=== PATIENT | female | born 1965 | race Caucasian/White ===

== ENCOUNTER 2024-05-11 17:08 | Outpatient (REF) | payer OTHER, SELFPAY ==
--- NOTE | ~2024-05-11 | MR_ITS ---
EXAMINATION: MR BRAIN WITHOUT AND WITH CONTRAST CLINICAL INFORMATION: Resting tremor. COMPARISON: None available. TECHNIQUE: MRI of the brain was obtained using routine sequences without and following the administration of 6.5 mL of Gadavist intravenous contrast. FINDINGS: No focal restricted diffusion is demonstrated to suggest acute or subacute cerebral ischemia. No evidence of acute or chronic hemorrhagic products on heme-sensitive imaging. Scattered periventricular and deep white matter T2 FLAIR hyperintensities most commonly seen with mild underlying microangiopathy. Proportional prominence of the ventricles and sulcal spaces without evidence of obstructive hydrocephalus. No abnormal mass effect. No midline shift. The hippocampi are symmetric in size, contour, and signal intensity. The temporal horns appear symmetric. Normal appearance of the pituitary gland. Normal positioning of the cerebellar tonsils. Normal arterial and venous vascular flow voids are present. No abnormal contrast enhancement. Normal, homogeneous marrow signal. Moderate polypoid mucosal thickening of the ethmoid air cells. Mild mucosal thickening of the remaining paranasal sinuses. No signal abnormalities within the mastoids. MR/MR head/brain wo/w con IMPRESSION: 1. No acute intracranial abnormalities. No abnormal intracranial enhancement. 2. Mild nonspecific white matter changes most commonly seen with mild underlying microangiopathy. 3. No additional MRI abnormalities to explain the patient's symptoms. Electronically signed by: Washington Russell DO 05/20/2024 05:21 AM [id number]
[2024-05-11] MEDS: gadobutroL 7.5 ML VIAL IVPUSH (17:50)
== END 2024-05-11 17:09 | disposition home or self-care (01) ==
LOC: HO.MRI 17:08
PROVIDERS: Visit Provider Psychiatry & Neurology Neurology
DX: R25.9 Unspecified abnormal involuntary movements (principal)
CPT/HCPCS: 70553; A9585